=== PATIENT | male | born 1945 | race Hispanic/Latino ===

== ENCOUNTER 2018-11-23 15:10 | Emergency (ER) | payer MEDICARE ==
--- NOTE | 2018-11-23 16:49 | Emergency Department Report ---
Chief Complaint: Pain General Stated Complaint: XRAY ORDERED Time Seen by Provider: 11/23/18 16:43 - HPI History of Present Illness: This is a 73 y.o. male that presents to ER for admission from hematology Dr. Tao. Patient seen by hematology today and sent to ER for admission. Patient have bone mets at risk for right hip fracture. 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 Due to findings the following was ordered: Labs and CTA ED Disposition for MSE Condition: Stable Referrals: YENNIFER TAO MD [Primary Care Provider] - 3-5 Days
--- NOTE | 2018-11-23 17:26 | Emergency Department Report ---
ED Lower Extremity HPI - General Chief Complaint: Pain General Stated Complaint: XRAY ORDERED Time Seen by Provider: 11/23/18 16:43 Source: patient, family, RN notes reviewed Mode of arrival: Wheelchair Limitations: No Limitations - History of Present Illness Initial Comments: 73-year-old male sent to ED by oncologist. Patient reports right hip pain for approximately one month. MRI was ordered by PCP, which showed a mass in the right hip. Patient seen by Dr. Tao, oncologist, today and sent to the ED for further evaluation. Pt has been walking with a cane and using a wheelchair whenever possible due to the severity of the pain. MD Complaint: other (R hip pain) -: month(s) (1) Injury: Hip: Right Severity: severe Improves With: nothing Worsens With: weight bearing, movement, palpation Associated Symptoms: unable to bear weight - Related Data Previous Rx's Medication Instructions Recorded Last Taken Type Morphine Sulfate [Morphine Sulfate 10 mg PO BID #30 cap.er.pel 11/23/18 Unknown Rx ER] Sennosides/Docusate [Senokot S] 2 each PO Q12HR #48 tab 11/23/18 Unknown Rx oxyCODONE /ACETAMINOPHEN [Percocet 1 tab PO Q6HR PRN #24 tablet 11/23/18 Unknown Rx 5/325] Allergies Allergy/AdvReac Type Severity Reaction Status Date / Time No Known Allergies Allergy Verified 11/23/18 16:01 ED Review of Systems ROS: Stated complaint: XRAY ORDERED Other details as noted in HPI Comment: All other systems reviewed and negative Constitutional: denies: chills, fever Musculoskeletal: back pain, arthralgia ED Past Medical Hx - Past Medical History Hx Hypertension: Yes - Surgical History Additional Surgical History: Fempop - Social History Smoking Status: Former Smoker Substance Use Type: None - Medications Home Medications: Home Medications Medication Instructions Recorded Confirmed Last Taken Type Morphine Sulfate [Morphine Sulfate 10 mg PO BID #30 cap.er.pel 11/23/18 Unknown Rx ER] Sennosides/Docusate [Senokot S] 2 each PO Q12HR #48 tab 11/23/18 Unknown Rx oxyCODONE /ACETAMINOPHEN [Percocet 1 tab PO Q6HR PRN #24 tablet 11/23/18 Unknown Rx 5/325] ED Physical Exam - General Limitations: No Limitations General appearance: alert, in no apparent distress - Head Head exam: Present: atraumatic, normocephalic - Eye Eye exam: Present: normal appearance - ENT ENT exam: Present: mucous membranes moist - Neck Neck exam: Present: normal inspection - Respiratory Respiratory exam: Present: normal lung sounds bilaterally. Absent: respiratory distress - Cardiovascular Cardiovascular Exam: Present: regular rate, normal rhythm - GI/Abdominal GI/Abdominal exam: Present: soft. Absent: distended - Extremities Exam Extremities exam: Present: other (tenderness to the right hip) - Neurological Exam Neurological exam: Present: alert, oriented X3. Absent: motor sensory deficit - Psychiatric Psychiatric exam: Present: normal affect, normal mood - Skin Skin exam: Present: warm, dry, intact, normal color ED Course Vital Signs 11/23/18 11/23/18 11/23/18 16:38 17:13 17:30 Temperature 97.8 F Pulse Rate 80 Respiratory 22 Rate Blood Pressure 121/64 118/71 125/66 Blood Pressure [Right] O2 Sat by Pulse 94 Oximetry 11/23/18 11/23/18 11/23/18 18:00 18:08 19:35 Temperature 98.1 F Pulse Rate 81 Respiratory 18 18 Rate Blood Pressure 110/70 Blood Pressure 131/84 [Right] O2 Sat by Pulse 96 Oximetry - Consultations Consultation #1: 11/23/18 17:44 Spoke w/ Dr Tao. States MRI shows bilateral hip masses, without fracture. States is likely metastatic. Wants pt admitted for CT Chest/ Abdomen/Pelvis to find primary malignancy, ortho consult, and radiation consult. Consultation #2: 11/23/18 18:52 Pt seen and evaluated by Dr Dubon, hospitalist. Does not meet inpatient criteria. ED Lower Extremity MDM - Lab Data Result diagrams: 11/23/18 16:55 11/23/18 16:55 Critical care attestation.: If time is entered above; I have spent that time in minutes in the direct care of this critically ill patient, excluding procedure time. ED Disposition Clinical Impression: Bone mass Disposition: DC-01 TO HOME OR SELFCARE Is pt being admited?: No Condition: Stable Prescriptions: Morphine Sulfate [Morphine Sulfate ER] 10 mg PO BID #30 cap.er.pel oxyCODONE /ACETAMINOPHEN [Percocet 5/325] 1 tab PO Q6HR PRN #24 tablet PRN Reason: Pain Sennosides/Docusate [Senokot S] 2 each PO Q12HR #48 tab Referrals: YENNIFER TAO MD [Primary Care Provider] - 3-5 Days
[2018-11-23 17:30] LABS: Basophils # (Auto) 0.1 K/mm3 (0.0-0.1); Basophils % (Auto) 0.7 % (0.0-1.8); Eosinophils # (Auto) 0.1 K/mm3 (0.0-0.4); Eosinophils % (Auto) 0.9 % (0.0-4.3); Hematocrit 34.3 % (35.5-45.6); Hemoglobin 11.1 gm/dl (11.8-15.2); Lymphocytes # (Auto) 1.3 K/mm3 (1.2-5.4); Lymphocytes % (Auto) 15.4 % (13.4-35.0); Mean Corpuscular HGB Conc 32 % (32-34); Mean Corpuscular Volume 94 fl (84-94); Monocytes # (Auto) 0.8 K/mm3 (0.0-0.8); Monocytes % (Auto) 8.9 % (0.0-7.3); Platelet Count 393 K/mm3 (140-440); Red Blood Count 3.66 M/mm3 (3.65-5.03); Red Cell Distribution Width 17.6 % (13.2-15.2)
[2018-11-23 17:54] LABS: Alanine Aminotransferase 18 units/L (7-56); Albumin 3.8 g/dL (3.9-5); BUN/Creatinine Ratio 25; Blood Urea Nitrogen 20 mg/dL (9-20); Calcium 10.7 mg/dL (8.4-10.2); Hemolysis Index 7
[2018-11-23] MEDS ORDERED: MORPHINE IV ONE (18:38)
--- NOTE | 2018-11-23 18:46 | Event Note ---
Date: 11/23/18 73 YO Male with Right Hip Mass on MRI presents to ED for evaluation. Pt found to have Right hip pain. Pt denies fever, chills, CP, Palpitations, NVD, Trauma, Falls, Prolonged travel/immobility, unilateral leg pain, calf pain, cough, NVD, Abdominal pain, BRBPR, hemoptysis, individual/family history of DVT/PE/Blood Clotting/Bleeding Disorder, shortness of breath, skin rash, or recent ill contacts. Pt is in his usual state of health. Pt is low risk by Wells Criteria. Pt sent by Oncology for metastatic workup. Pt has no acute medical findings at this time, no acute bone fracture. Pt given pain medication and placed on bowel regimen. Pt medically optimized and discharged home. Pt instructed to f/u with oncology for initiation and completion of metastatic workup as outpatient. - General Limitations: No Limitations General appearance: alert, in no apparent distress - Head Head exam: Present: atraumatic, normocephalic - Eye Eye exam: Present: normal appearance - ENT ENT exam: Present: mucous membranes moist - Neck Neck exam: Present: normal inspection - Respiratory Respiratory exam: Present: normal lung sounds bilaterally. Absent: respiratory distress - Cardiovascular Cardiovascular Exam: Present: regular rate, normal rhythm - GI/Abdominal GI/Abdominal exam: Present: soft. Absent: distended - Extremities Exam Extremities exam: Present: other (tenderness to the right hip) - Neurological Exam Neurological exam: Present: alert, oriented X3. Absent: motor sensory deficit - Psychiatric Psychiatric exam: Present: normal affect, normal mood - Skin Skin exam: Present: warm, dry, intact, normal color
[2018-11-23 19:38] VITALS: BP 131/84
== END 2018-11-23 19:35 | disposition home or self-care (01) ==
LOC: ED 15:10 → XRAY 15:10 → EDSTATUS 15:25 → ED 19:35
DX: M25.851 Other specified joint disorders, right hip (principal); I10 Essential (primary) hypertension; Z87.891 Personal history of nicotine dependence
CPT/HCPCS: 36415; 80053; 85025; 96374; 99283; J2270